=== PATIENT | male | born 1975 | race Caucasian/White ===

== ENCOUNTER 2020-07-10 22:43 | Emergency (ER) | payer OTHER ==
[~2020-07-10] VITALS: Ht 177.8 cm; Wt 104.3 kg
[~2020-07-10 22:43] MED LIST: ALBUTEROL0.63 MG/3 INH; ALLOPURINOL100 MG PO; ASPIRIN EC81 MG PO; COUMADIN10 MG PO; CYCLOBENZAPRINE10 MG PO; EFFEXOR XR150 MG PO; GABAPENTIN300 MG PO; GABAPENTIN600 MG PO; LEVOTHYROXINE50 MCG PO; LIPITOR40 MG PO; LISINOPRIL10 MG PO; METOPROLOL SUCC50 MG PO; METOPROLOL TART50 MG PO; NICODERM CQ1 EAC1 TD; NITROSTAT0.4 MG SL; OMEPRAZOLE20 MG PO; PROVENTIL HFA6.7 GM INH; RANITIDINE HCL150 MG PO; SUCRALFATE1 GM PO; VENLAFAXINE HCL75 M1 PO; VENLAFAXINE HCL75 MG PO; VITAMIN D5000 UNIT PO; WARFARIN SODIUM5 MG PO
--- OUTSIDE RECORDS SUMMARY | 2020-07-10 22:46 | XMS ---
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 Additional care guidelines exist for the following facilities: [facility] ( 10/05/2018 ) [facility] Von VISIT COUNT (12 MO.) 5 [facility] 1 YUSUF GallegosIsabel TOTAL 6 NOTE: Visits indicate total known visits. ED/UCC VISIT TRACKING (12 MO.) 07/10/2020 22:44 [facility] [place] [facility] [place] TYPE: Emergency COMPLAINT: - CHEST PAIN 03/08/2020 18:50 [facility] COMPLAINT: - SHOULDER PAIN DIAGNOSES: - SHOULDER PAIN 03/05/2020 22:34 [facility] OR TYPE: Emergency DIAGNOSES: - Contusion of left shoulder, initial encounter - ARM NUMBNESS 11/12/2019 12:58 [facility] OR TYPE: Emergency DIAGNOSES: - Supraventricular tachycardia - CHEST PAIN 10/25/2019 16:03 [facility] OR TYPE: Emergency DIAGNOSES: - SUSTAINED FUT - SUSTAINED SVT - Supraventricular tachycardia 10/20/2019 15:10 [facility] OR TYPE: Emergency DIAGNOSES: - screening+/chest pain, rapid heart rate, sob - screening+/chest pain, rapi heart rate - Unstable angina INPATIENT VISIT TRACKING (12 MO.) 10/21/2019 04:10 [facility] TYPE: Inpatient DIAGNOSES: - Presence of coronary angioplasty implant and graft - chest pain [email or web address]
[2020-07-10] MEDS ORDERED: PRILOSEC OTC20 MG PO (23:36)
[2020-07-10] MEDS ORDERED: TRAZODONE HCL100 MG PO (23:38)
[2020-07-10] MEDS ORDERED: CLONAZEPAM0.5 MG PO (23:39)
[2020-07-10] MEDS ORDERED: LOXAPINE25 MG PO (23:40)
[2020-07-10] MEDS ORDERED: PLAVIX75 MG PO (23:41)
[2020-07-10] MEDS ORDERED: OXYCODONE HCL5 MG PO (23:43)
--- NOTE | 2020-07-11 21:11 | EKG ---
[facility] [address] [facility] [place], [place] [address] Signed Sinus tachycardia Left posterior fascicular block Cannot rule out Inferior infarct , age undetermined Abnormal ECG No previous ECGs available Confirmed by DANE CALVERT DO ([id number]) on 07/11/2020 9:11:38 PM Electronically Signed By: DANE CALVERT DO 07/11/202110 PATIENT NAME: MAURY MELGAR Electrocardiogram DATE OF : 71 PHYSICIAN: DANE CALVERT DO REPORT #: [id number] REPORT IS CONFIDENTIAL AND NOT TO BE RELEASED WITHOUT AUTHORIZATION
--- NOTE | 2020-07-11 21:11 | EKG ---
[facility] [address] [facility] [place], [place] [address] Signed Sinus rhythm with marked sinus arrhythmia Rightward axis Nonspecific ST abnormality Abnormal ECG When compared with ECG of 10-JUL-2020 22:50, (Unconfirmed) Minimal criteria for Inferior infarct are no longer present Confirmed by DANE CALVERT DO ([id number]) on 07/11/2020 9:11:44 PM Electronically Signed By: DANE CALVERT DO 07/11/202110 PATIENT NAME: MAURY MELGAR Electrocardiogram DATE OF : 71 PHYSICIAN: DANE CALVERT DO REPORT #: [id number] REPORT IS CONFIDENTIAL AND NOT TO BE RELEASED WITHOUT AUTHORIZATION
== END 2020-07-11 04:39 | disposition home or self-care (01) ==
LOC: ED 22:43
DX: R07.89 Other chest pain (principal); M54.9 Dorsalgia, unspecified; G89.29 Other chronic pain; F32.9 Major depressive disorder, single episode, unspecified; F11.20 Opioid dependence, uncomplicated; F60.3 Borderline personality disorder; J45.909 Unspecified asthma, uncomplicated; E78.5 Hyperlipidemia, unspecified; E03.9 Hypothyroidism, unspecified; I10 Essential (primary) hypertension; Z79.899 Other long term (current) drug therapy; Z79.82 Long term (current) use of aspirin; Z79.891 Long term (current) use of opiate analgesic
CPT/HCPCS: 71045; 80053; 80176; 81001; 83735; 84443; 84484; 85025; 93005; 93010; 96374; 99285-25; J1885